=== PATIENT | female | born 2000 | race Two or more races ===

== ENCOUNTER → 2025-01-13 | Emergency (ER) | payer OTHER ==
[~2025-01-13] VITALS: Ht 165.1 cm; Wt 61.2 kg
== END | disposition home or self-care (01) ==
LOC: ER 21:08
DX: B37.9 Candidiasis, unspecified (principal)

== ENCOUNTER 2025-03-17 18:07 | Emergency (ER) | payer OTHER ==
[~2025-03-17] VITALS: Ht 167.6 cm; Wt 63.5 kg
[2025-03-17 21:34] LABS: BASO % 0.8 % (0.1-1.2); EOS # 0.14 (0.04-0.54); EOS % 1.5 % (0.7-7.0); HEMATOCRIT 34.1 % (34.1-44.9); HEMOGLOBIN 11.9 g/dL (11.2-15.7); LYMPH # 3.66 (1.18-3.74); LYMPH % 38.5 % (19.3-53.1); MEAN CORPUSCULAR HEMOGLOBIN 26.6 pg (25.6-32.2); MONO # 0.89 (0.24-0.82); MONO % 9.4 % (4.7-12.5); NEUT # 4.72 (1.56-6.13); NEUT % 49.6 % (34.0-71.1); PLATELET COUNT 308 K/uL (163-369); RED BLOOD COUNT 4.48 M/uL (3.93-5.22); RED CELL DISTRIBUTION WIDTH 14.1 % (11.6-14.4)
[2025-03-17 21:55] LABS: INFLUENZA A AG NEGATIVE (NEGATIVE); INFLUENZA B AG NEGATIVE (NEGATIVE)
[2025-03-18 00:22] LABS: COVID-19 AG NEGATIVE (NEGATIVE)
[2025-03-18] MEDS ORDERED: AMOX-CLAV 875-1 EACH PO (01:01)
[2025-03-18] MEDS ORDERED: ACETAMINOPHEN500 M1 PO (01:01)
[2025-03-18] MEDS ORDERED: MOMETASONE FURO17 GM NASAL (01:01)
== END 2025-03-18 01:23 | disposition home or self-care (01) ==
LOC: ER 19:27
PROVIDERS: Preventive Medicine Public Health & General Preventive Medicine
DX: J32.9 Chronic sinusitis, unspecified (principal); Z20.822 Contact with and (suspected) exposure to COVID-19